=== PATIENT | male | born 1955 | race Caucasian/White ===

== ENCOUNTER → 2016-10-03 | Outpatient (CLI) | payer OTHER | LOC: EXRD 11:08 | DX: J20.9 Acute bronchitis, unspecified (principal) | CPT/HCPCS: 71020 ==

== ENCOUNTER → 2021-09-01 | Outpatient (CLI) | payer MEDICARE | LOC: EXRD 14:59 | DX: R06.02 Shortness of breath (principal); J98.11 Atelectasis | CPT/HCPCS: 71046 ==